=== PATIENT | female | born 1980 | race Caucasian/White ===

== ENCOUNTER 2019-08-29 04:06 | Emergency (ER) | payer BC ==
[2019-08-29] MEDS ORDERED: Albuterol/Ipratropium 3.0-0.5 MG/3 ML Neb Soln NEB ONE (04:22)
--- NOTE | 2019-08-29 04:27 | EDM.PDOC ---
ED HPI GENERAL MEDICAL PROBLEM - General Chief Complaint: Respiratory Problem Stated Complaint: COUGHING Time Seen by Provider: 08/29/19 04:11 - History of Present Illness INITIAL COMMENTS - FREE TEXT/NARRATIVE: HISTORY AND PHYSICAL: History of present illness: The patient is a 39-year-old female with no history of pulmonary issues and no social history of smoking or drug use and presents with 2 days of a cough which is occasional tachycardia and dry and sometimes productive of some phlegm. She is felt intermittently short of breath but has not had a fever vomiting diarrhea or chest pain. She does feel like she has sinus pressure but no great amount of drainage and as a result of the cough she has had a sore throat but the cough has triggered that to occur. She has no abdominal pain and says that she is not as she has had a bilateral tubal ligation. The patient had a history of pneumonia in her early 20s but since that time has not had any seasonal allergies or pulmonary problems. Patient did get her flu shot this year. She is eating and drinking normally. The only medications over-the- counter the patient has used has been DayQuil and NyQuil Review of systems: As per history of present illness and below otherwise all systems reviewed and negative. Past medical history: As per history of present illness and as reviewed below otherwise noncontributory. Surgical history: As per history of present illness and as reviewed below otherwise noncontributory. Social history: No reported history of drug or alcohol abuse. Family history: As per history of present illness and as reviewed below otherwise noncontributory. Physical exam: General: Well-developed well-nourished female who speaks clearly in the ED without nasal quality to voice, breathlessness, hoarse or muffled voice. Vital signs are noted by me HEENT: Atraumatic, normocephalic, pupils reactive, negative for conjunctival pallor or scleral icterus, mucous membranes moist, throat clear, neck supple, nontender, trachea midline. There was no cervical adenopathy or nuchal rigidity and no nasal drainage Lungs: Clear to auscultation with slightly diminished breath sounds in the right middle lobe but no wheezing stridor or work of breathing, breath sounds equal bilaterally, chest nontender. Heart: S1S2, regular rate and rhythm no overt murmurs Abdomen: Soft, nondistended, nontender. NABS Negative for costovertebral tenderness. Pelvis: Deferred Genitourinary: Deferred. Rectal: Deferred. Extremities: Atraumatic, full range of motion. Neurovascular unremarkable. No pedal edema Neuro: Awake, alert, oriented. Cranial nerves II through XII unremarkable. Cerebellum unremarkable. Motor and sensory unremarkable throughout. Exam nonfocal. Diagnostics: Influenza chest x-ray Therapeutics: DuoNeb, spacer and teaching Impression: Acute bronchitis Definitive disposition and diagnosis as appropriate pending reevaluation and review of above. - Related Data Allergies Allergy/AdvReac Type Severity Reaction Status Date / Time No Known Allergies Allergy Verified 08/29/19 04:09 Home Meds: Home Meds Omeprazole 20 mg PO DAILY 08/29/19 [History] Past Medical History Cardiovascular History: Reports: Hypertension Gastrointestinal History: Reports: GERD - Past Surgical History HEENT Surgical History: Reports: Tonsillectomy Female Surgical History: Reports: Section, Tubal Ligation Musculoskeletal Surgical History: Reports: Other (See Below) Other Musculoskeletal Surgeries/Procedures:: ankle sx Social & Family History - Family History Family Medical History: Noncontributory - Tobacco Use Smoking Status *Q: Never Smoker - Recreational Drug Use Recreational Drug Use: No ED ROS GENERAL - Review of Systems Review Of Systems: ROS reveals no pertinent complaints other than HPI. ED EXAM, GENERAL - Physical Exam Exam: See Below (see dictation) Course - Vital Signs Last Recorded V/S: Last Vital Signs Temp 35.9 C 08/29/19 04:10 Pulse 84 08/29/19 04:10 Resp 18 08/29/19 04:10 BP 131/76 08/29/19 04:10 Pulse Ox 97 08/29/19 04:10 - Orders/Labs/Meds Orders: Active Orders 24 hr Category Date Time Status RT Aerosol Therapy [RC] ASDIRECTED Care 08/29/19 04:23 Active Meds: Medications Discontinued Medications Generic Name Dose Route Start Last Admin Trade Name Freq PRN Reason Stop Dose Admin Albuterol/Ipratropium 3 ml 08/29/19 04:22 08/29/19 04:26 Duoneb 3.0-0.5 Mg/3 Ml NEB 08/29/19 04:23 3 ml ONETIME ONE Administration Departure - Departure Time of Disposition: 05:21 Disposition: Home, Self-Care 01 Condition: Good Clinical Impression: Bronchitis - Discharge Information Referrals: PCP,None [Primary Care Provider] - Forms: ED Department Discharge Additional Instructions: The following information is given to patients seen in the emergency department who are being discharged to home. This information is to outline your options for follow-up care. We provide all patients seen in our emergency department with a follow-up referral. The need for follow-up, as well as the timing and circumstances, are variable depending upon the specifics of your emergency department visit. If you don't have a primary care physician on staff, we will provide you with a referral. We always advise you to contact your personal physician following an emergency department visit to inform them of the circumstance of the visit and for follow-up with them and/or the need for any referrals to a consulting specialist. The emergency department will also refer you to a specialist when appropriate. This referral assures that you have the opportunity for followup care with a specialist. All of these measure are taken in an effort to provide you with optimal care, which includes your followup. Under all circumstances we always encourage you to contact your private physician who remains a resource for coordinating your care. When calling for followup care, please make the office aware that this follow-up is from your recent emergency room visit. If for any reason you are refused follow-up, please contact the [facility] emergency department at and ask to speak to the emergency department charge nurse. [facility] Primary care- Internal Medicine and Family [address] [address] Push hydration and use any [id number] cough prep that you choose and take Tylenol or ibuprofen for fever management. Please use the inhaler your been given with spacer as shown as directed and also take the Medrol dose pack as prescribed to you from [employer] [facility] .Please call and schedule a follow-up appointment with your provider or one of ours in the clinic for further care and reevaluation. Return to ER as needed and as discussed - My Orders Last 24 Hours: My Active Orders 08/29/19 04:23 RT Aerosol Therapy [RC] ASDIRECTED - Assessment/Plan Last 24 Hours: My Active Orders 08/29/19 04:23 RT Aerosol Therapy [RC] ASDIRECTED
--- NOTE | 2019-08-29 05:06 | CR ---
INDICATION: Cough COMPARISON: None TECHNIQUE: Frontal and lateral views of the chest FINDINGS: The lungs are clear. There is no pleural effusion or pneumothorax. The cardiomediastinal silhouette is normal. The osseous structures are unremarkable. IMPRESSION: No acute process. Dictated by Melanie Campos MD @ Aug 29 2019 5:05AM Signed by Dr. Melanie Campos @ Aug 29 2019 5:05AM
== END 2019-08-29 05:25 | disposition home or self-care (01) ==
LOC: MW.ED 04:06
DX: J40 Bronchitis, not specified as acute or chronic (principal); I10 Essential (primary) hypertension; K21.9 Gastro-esophageal reflux disease without esophagitis; Z79.899 Other long term (current) drug therapy
CPT/HCPCS: 71046; 71046-26; 87804; 94640; 99283; 99285-25; J7620-GY

== ENCOUNTER 2019-09-04 17:42 | Emergency (ER) | payer BC ==
--- NOTE | 2019-09-04 17:53 | EDM.PDOC ---
ED HPI GENERAL MEDICAL PROBLEM - General Chief Complaint: Lower Extremity Injury/Pain Stated Complaint: INJURED LT KNEE Time Seen by Provider: 09/04/19 17:44 Source of Information: Reports: Patient History Limitations: Reports: No Limitations - History of Present Illness INITIAL COMMENTS - FREE TEXT/NARRATIVE: HISTORY AND PHYSICAL: History of present illness: Patient is a 39-year-old female presents to the ED today with concern of left knee injury that occurred 1 week ago. Patient states she went to go sit on her couch and felt her knee "pop" and since then has been having left knee pain. Patient states the knee began to bruises the next day. Patient states she has been able to walk on the knee but does have pain with doing so. Patient denies any prior knee injury or trauma. Patient denies any other symptoms or concerns.Patient states she does have an appointment with orthopedic provider in 2 weeks. Patient denies fever, chills, chest pain, shortness of breath, or cough. Denies headache, neck stiff ness, change in vision, syncope, or near syncope. Denies nausea, vomiting, abdominal pain, diarrhea, constipation, or dysuria. Has not noted any blood in urine or stool. Patient has been eating and drinking appropriately. Review of systems: As per history of present illness and below otherwise all systems reviewed and negative. Past medical history: As per history of present illness and as reviewed below otherwise noncontributory. Surgical history: As per history of present illness and as reviewed below otherwise noncontributory. Social history: See social history for further information Family history: As per history of present illness and as reviewed below otherwise noncontributory. Physical exam: General: Patient is alert, oriented, and in no acute distress. Patient sitting comfortably on exam table. HEENT: Atraumatic, normocephalic, pupils equal and reactive bilaterally, negative for conjunctival pallor or scleral icterus, mucous membranes moist, TMs normal bilaterally, throat clear, neck supple, nontender, trachea midline. No drooling or trismus noted. No meningeal signs. No hot potato voice noted. Lungs: Clear to auscultation, breath sounds equal bilaterally, chest nontender. Heart: S1S2, regular rate and rhythm without overt murmur Abdomen: Soft, nondistended, nontender. Negative for masses or hepatosplenomegaly. Negative for costovertebral tenderness. Pelvis: Stable nontender. Genitourinary: Deferred. Rectal: Deferred. Skin: Intact, warm, dry. No lesions or rashes noted. Extremities: Negative for cords or calf pain. Neurovascular unremarkable. The left knee is moderately edematous with purple bruising along the entire knee. Patient has full ROM of the left knee but does have pain with ROM. DP/PT intact of LLE with cap refill <2 seconds. Neuro: Awake, alert, oriented. Cranial nerves II through XII unremarkable. Cerebellum unremarkable. Motor and sensory unremarkable throughout. Exam nonfocal. Notes: Discussed the importance for follow-up with an orthopedic provider. Voices understanding and is agreeable to plan of care. Denies any further questions or concerns at this time. Diagnostics: Knee XR Therapeutics: Immobilizer and crutches Prescription: Diclofenac Impression: Left knee injury Plan: 1. Rest, ice, elevate the affected extremity. You can apply ice 15 minutes on, 15 minutes off. Keep immobilizer on until follow up with orthopedics, 2. Tylenol directed for pain management or discomfort. Take medication as prescribed. 3. Follow up with the Orthopedic provider as discussed. Return to the ED as needed and as discussed. Definitive disposition and diagnosis as appropriate pending reevaluation and review of above. L knee Pain Score (Numeric/FACES): 3 - Related Data Allergies Allergy/AdvReac Type Severity Reaction Status Date / Time No Known Allergies Allergy Verified 09/04/19 17:53 Home Meds: Home Meds Omeprazole 20 mg PO DAILY 08/29/19 [History] Past Medical History Cardiovascular History: Reports: Hypertension Gastrointestinal History: Reports: GERD - Past Surgical History HEENT Surgical History: Reports: Tonsillectomy Female Surgical History: Reports: Section, Tubal Ligation Musculoskeletal Surgical History: Reports: Other (See Below) Other Musculoskeletal Surgeries/Procedures:: ankle sx Social & Family History - Family History Family Medical History: Noncontributory Review of Systems - Review of Systems Review Of Systems: Comprehensive ROS is negative, except as noted in HPI. ED EXAM, GENERAL - Physical Exam Exam: See Below (see dictation) Course - Vital Signs Last Recorded V/S: Last Vital Signs Temp 97.8 F 09/04/19 17:53 Pulse 71 09/04/19 17:53 Resp 18 09/04/19 17:53 BP 163/89 H 09/04/19 17:53 Pulse Ox 99 09/04/19 17:53 - Orders/Labs/Meds Orders: Active Orders 24 hr Category Date Time Status DME for Discharge [COMM] Stat Oth 09/04/19 17:51 Ordered Departure - Departure Time of Disposition: 18:26 Disposition: Home, Self-Care 01 Clinical Impression: Knee injury Qualifiers: Encounter type: initial encounter Laterality: left Qualified Code(s): S89.92XA - Unspecified injury of left lower leg, initial encounter - Discharge Information Referrals: PCP,None [Primary Care Provider] - Forms: ED Department Discharge Additional Instructions: The following information is given to patients seen in the emergency department who are being discharged to home. This information is to outline your options for follow-up care. We provide all patients seen in our emergency department with a follow-up referral. The need for follow-up, as well as the timing and circumstances, are variable depending upon the specifics of your emergency department visit. If you don't have a primary care physician on staff, we will provide you with a referral. We always advise you to contact your personal physician following an emergency department visit to inform them of the circumstance of the visit and for follow-up with them and/or the need for any referrals to a consulting specialist. The emergency department will also refer you to a specialist when appropriate. This referral assures that you have the opportunity for follow-up care with a specialist. All of these measure are taken in an effort to provide you with optimal care, which includes your follow-up. Under all circumstances we always encourage you to contact your private physician who remains a resource for coordinating your care. When calling for follow-up care, please make the office aware that this follow-up is from your recent emergency room visit. If for any reason you are refused follow-up, please contact the [facility] Emergency Department at and asked to speak to the emergency department charge nurse. [facility] [address] [place] [id number] [address] [facility] Specialty Care - Orthopedic Clinic Professional Building [address] [facility], [address] [place] [address] Dr Edmond, Orthopedist [facility] [address] [place] [address] Dr Potter - Dr Beckett - Dr Wyatt [facility] [address] [place] [address] [facility] [address] [place] [address] 1. Rest, ice, elevate the affected extremity. You can apply ice 15 minutes on, 15 minutes off. Keep immobilizer on until follow up with orthopedics, 2. Tylenol directed for pain management or discomfort. Take medication as prescribed. 3. Follow up with the Orthopedic provider as discussed. Return to the ED as needed and as discussed. - My Orders Last 24 Hours: My Active Orders 09/04/19 17:51 DME for Discharge [COMM] Stat - Assessment/Plan Last 24 Hours: My Active Orders 09/04/19 17:51 DME for Discharge [COMM] Stat
--- NOTE | 2019-09-04 18:21 | CR ---
Indication: Twisted 1 week ago. Swelling and bruising. Technique: Three views of the left knee were obtained. Comparison: None Findings: A questionable fracture of the medial aspect of the patella is identified. This is only seen on the sunrise view. A small joint effusion is identified. The joint spaces are otherwise well-maintained. Impression: Cannot exclude an avulsion of the medial aspect of the patella. Consideration could be given to a CT scan for further evaluation. Dictated by Carrie Renae MD @ Sep 04 2019 6:19PM Signed by Dr. Carrie Renae @ Sep 04 2019 6:20PM
== END 2019-09-04 18:38 | disposition home or self-care (01) ==
LOC: MW.ED 17:42
DX: S80.02XA Contusion of left knee, initial encounter (principal); I10 Essential (primary) hypertension; K21.9 Gastro-esophageal reflux disease without esophagitis; Z79.899 Other long term (current) drug therapy; X50.1XXA Overexertion from prolonged static or awkward postures, initial encounter
CPT/HCPCS: 73562-26-LT; 73562-LT; 99283; 99283-25

== ENCOUNTER 2020-01-31 08:11 | Emergency (ER) | payer BC ==
[2020-01-31] MEDS ORDERED: Adenosine 6 MG/2 ML SDV IVPUSH ONE (08:37)
[2020-01-31] MEDS ORDERED: Sodium Chloride 0.9% 1,000 ML IV ONE (08:43)
[2020-01-31 09:03] LABS: POTASSIUM,K 3.4 mmol/L (3.5-5.1)
[2020-01-31] MEDS ORDERED: Potassium Chloride 20 MEQ Tab.ER PO ONE (09:20)
--- NOTE | 2020-01-31 09:26 | EDM.PDOC ---
ED HPI GENERAL MEDICAL PROBLEM - General Chief Complaint: Cardiovascular Problem Stated Complaint: HIGH HEART RATE Time Seen by Provider: 01/31/20 08:15 - History of Present Illness INITIAL COMMENTS - FREE TEXT/NARRATIVE: HPI 39-year-old obese female with history of paroxysmal SVT presents with recurrent tachycardia/palpitations that she noticed this morning upon awakening, afterwards the patient drank a caffeinated beverage and present to the ED for chemical cardioversion. 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 Notes normal sleep, no EtOH use. No further stimulant use. Denies a history of DVT, PE, exogenous estrogen use, or shortness of breath. Triage note: Pt states hx of tachycardia. Pt states the tachycardia woke her up this morning. M/S/F/SocHx notable for: please see HPI; remainder reviewed with patient and in chart. ROS: Negative constitutional, eye, cardiovascular, pulmonary, GI, , MSK, skin , neurologic, psychiatric, endocrine unless noted in the HPI. Exam HR 174, RR 18, BP 118/86, T 35.4C, SaO2 9 & room air. Gen: Pleasant, non-toxic appearing, resting comfortably. HEENT: NC, AT, PEERL, EOMI. Resp: Clear to auscultation bilaterally, normal work of breathing, no accessory muscle usage. Card: Regular rate and rhythm with no murmurs, rubs, or gallops, extremities warm and well perfused. GI: Non-tender to palpation throughout all quadrants, no focal tenderness at McBurney's point, negative Aragon's sign, non-distended, no rebound or guarding. : No suprapubic tenderness to palpation. MSK: No visible deformities, strength and tone without visually appreciable deficit. Skin: Normal color with no visible lesions. Neuro: alert and oriented 3, no facial asymmetry, vision and hearing WNL. Psych: Mood and affect appropriate. Labs / Imaging: EKG (8:18 AM) SVT at 171 bpm, no ST segment elevations or depressions. WBC 7.8, HB 12.9, Na 141, K 3.4, MG 2.0, TSH 2.62, free T4 1.20, hCG negative. EKG (8:56 AM) SR 112 bpm, PVCs present, no ST segment elevations or depressions. MDM Previous chart, nursing note, labs, imaging, and vitals reviewed. A: 39-year-old obese female with history of paroxysmal SVT presents with recurrent tachycardia/palpitations that she noticed this morning upon awakening , afterwards the patient drank a caffeinated beverage and present to the ED for chemical cardioversion. DDx: atrial fibrillation, SVT, sinus tachycardia, dehydration, electrolyte abnormalities, stimulant use. Evaluation: patient in SVT, vagal maneuver is unsuccessful, converted with adenosine, mild hypokalemia noted, PO supplementation given the ED, patient instructed to improve dietary intake. Patient with cardiology follow-up in the near future. TSH WNL. No anemia. Patient recommended to decrease stimulant use. No risk features with respect to PE identified, no further evaluation presently indicated. ED Course: 1. attempted modified vagal maneuver without termination of SVT. 1 L NS ordered. 2. After verbal consent was obtained, chemical cardioversion with adenosine performed as documented below. Impression: SVT (please reference below for remainder of encounter information) Chemical Cardioversion Indication: supraventricular tachycardia. Consent: verbal. Risks and benefits including arrhythmias, emotional distress, hypotension, GA, and allergic reaction were discussed with the patient. The patient understood and agreed to proceed with the procedure. The patient was placed on supplemental oxygen and continuous cardiac and pulse oximetry monitoring. 6 mg Adenosine were given by rapid IV push, the patient had conversion to a normal sinus rhythm]. A continuous 12 lead electrocardiogram was obtained]. There were no complications and the patient tolerated the procedure well. 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: Neurological History: Reports: None Psychiatric History: Reports: Anxiety Endocrine/Metabolic History: Reports: None Hematologic History: Reports: None Immunologic History: Reports: None Oncologic (Cancer) History: Reports: None Dermatologic History: Reports: None - Infectious Disease History Infectious Disease History: Reports: Chicken Pox - Past Surgical History Head Surgeries/Procedures: Reports: None HEENT Surgical History: Reports: Tonsillectomy Female Surgical History: Reports: Section, Tubal Ligation Musculoskeletal Surgical History: Reports: Other (See Below) Other Musculoskeletal Surgeries/Procedures:: L ankle fusion Social & Family History - Family History Family Medical History: Noncontributory - Tobacco Use Smoking Status *Q: Current Every Day Smoker Years of Tobacco use: 20 Packs/Tins Daily: 0.4 - Recreational Drug Use Recreational Drug Use: No ED ROS GENERAL - Review of Systems Review Of Systems: See Below ED EXAM, GENERAL - Physical Exam Exam: See Below Course - Vital Signs Last Recorded V/S: Last Vital Signs Temp 36.1 C 01/31/20 09:01 Pulse 81 01/31/20 09:16 Resp 18 01/31/20 09:16 BP 116/72 01/31/20 09:16 Pulse Ox 100 01/31/20 09:16 - Orders/Labs/Meds Orders: Active Orders 24 hr Category Date Time Status Sodium Chloride 0.9% [Normal Saline] 1,000 ml Med 01/31/20 08:43 Active IV .Bolus Medication Orders Sodium Chloride (Normal Saline) 1,000 mls @ 1,000 mls/hr IV .Bolus ONE Stop: 01/31/20 09:42 Last Admin: 01/31/20 08:45 Dose: 1,000 mls/hr Labs: Laboratory Tests 01/31/20 01/31/20 01/31/20 Range/Units 08:25 08:25 08:25 WBC 7.97 (4.0-11.0) K/uL RBC 4.59 (4.30-5.90) M/uL Hgb 12.9 (12.0-16.0) g/dL Hct 41.7 (36.0-46.0) % MCV 90.8 (80.0-98.0) fL MCH 28.1 (27.0-32.0) pg MCHC 30.9 L (31.0-37.0) g/dL RDW Std Deviation 52.9 (28.0-62.0) fl RDW Coeff of Tyrone 16 H (11.0-15.0) % Plt Count 363 (150-400) K/uL MPV 10.70 (7.40-12.00) fL Neut % (Auto) 64.1 (48.0-80.0) % Lymph % (Auto) 20.8 (16.0-40.0) % Surry % (Auto) 13.2 (0.0-15.0) % Eos % (Auto) 1.4 (0.0-7.0) % Baso % (Auto) 0.5 (0.0-1.5) % Neut # (Auto) 5.1 (1.4-5.7) K/uL Lymph # (Auto) 1.7 (0.6-2.4) K/uL Surry # (Auto) 1.1 H (0.0-0.8) K/uL Eos # (Auto) 0.1 (0.0-0.7) K/uL Baso # (Auto) 0.0 (0.0-0.1) K/uL Nucleated RBC % 0.0 /100WBC Nucleated RBCs # 0 K/uL Sodium 141 (136-145) mmol/L Potassium 3.4 L (3.5-5.1) mmol/L Chloride 105 (98-107) mmol/L Carbon Dioxide 29.0 (21.0-32.0) mmol/L BUN 18 (7.0-18.0) mg/dL Creatinine 1.5 H (0.6-1.0) mg/dL Est Cr Clr Drug Dosing 48.97 mL/min Estimated GFR (MDRD) 38.7 ml/min Glucose 136 H (74-106) mg/dL Calcium 8.7 (8.5-10.1) mg/dL Magnesium 2.0 (1.8-2.4) mg/dL Free T4 1.20 (0.76-1.46) ng/dL TSH 3rd Generation 2.62 (0.36-3.74) uIU/mL HCG, Qual NEGATIVE (NEG) Meds: Medications Generic Name Dose Route Start Last Admin Trade Name Freq PRN Reason Stop Dose Admin Sodium Chloride 1,000 mls @ 1,000 mls/hr 01/31/20 08:43 01/31/20 08:45 Normal Saline IV 01/31/20 09:42 1,000 mls/hr .Bolus ONE Administration Discontinued Medications Generic Name Dose Route Start Last Admin Trade Name Freq PRN Reason Stop Dose Admin Adenosine 6 mg 01/31/20 08:37 01/31/20 08:55 Adenocard IVPUSH 01/31/20 08:38 6 mg NOW ONE Administration Potassium Chloride 40 meq 01/31/20 09:20 Klor-Con M20 PO 01/31/20 09:21 ONETIME ONE Departure - Departure Time of Disposition: 09:26 Disposition: Home, Self-Care 01 Clinical Impression: SVT (supraventricular tachycardia) Referrals: PCP,None [Primary Care Provider] - Additional Instructions: You were in seen in the [facility] Emergency Department for evaluation of a fast heart rate, you were found to be in a supraventricular tachycardia and were given adenosine to restore your normal rhythm. Please follow-up as previously scheduled with cardiology. You are also noted to have a mildly low potassium, your given potassium supplementation in the emergency department and should improve your dietary intake of potassium rich foods (bananas, avocados, leafy greens, potatoes, legumes, dates, etc.). Please read and follow all of the instructions below. Please follow up with your primary care physician within 48 hours. When calling for follow-up care, please make the office aware that this follow-up is from your recent emergency room visit. If for any reason you are refused follow-up, please contact the [facility] Emergency Department at and asked to speak to the emergency department charge nurse. Your care today was limited to identifying and treating emergent medical problems only. Many people have subtle differences in their test results that require follow up with their outpatient physician(s) to correctly determine if this represents a normal variation or concerning abnormality with respect to your specific health. The care given to you today was limited to identifying and treating emergent medical problems - you need to request a copy of all of your medical records from today's visit and follow up with your outpatient physician(s) to review both today's visit and your overall health. If you have any new symptoms or if you are at all concerned about your health please return immediately to the emergency department. Prescriptions: If you are uninsured or have financial difficulties with filling your prescription(s), you may consider using a free pharmacy discount service such as [employer] ([employer]) or [employer] ([employer]). These services allow you to search for a medication on your phone (or computer) and obtain a coupon that usually has a significant discount from the list garduno at a pharmacy. Your physician as well as [facility] does not have a financial relationship with either of these services. You may also wish to speak with your physician to determine if lower cost prescriptions are possible. Obtaining primary care: 1. [facility] provides pediatrics (children), family medicine (children, adults, and some obstetrical care), and internal medicine (adults). Further specialty care is also available. Same day appointments are available. They may be contacted at [phone] and are open Tuesday through Tuesday 8 AM to 5 PM. The [facility] are located at [facility], [address] [place] [address]. 2. [facility] offers family medicine, internal medicine, [facility], and further specialty care. [facility] may be contacted at [phone]. [facility] is located at [address] [place], [address]. 3. If you have health insurance, please also contact your insurer for a list of accepting providers under your policy, you may contact these providers for further health care. Occupational health: Work related injuries may consider following up with [facility], . Occupational health services are located at [address] [place] [address] and are open Tuesday through Tuesday from 7: 30 am to 5:00 pm. Obstetrical and Gynecological Care: [facility], , Tuesday through Tuesday 8 AM to 5 PM. [address] [place] [address]. Eyecare: If you have an eye injury you should follow up with your profile grinder technician or with [facility], at [phone] or [phone] , they are located at [address] [place] [address]. Dental Care Clay Christianson DDS. [address] [facility].[place], [place]. Ph. [phone] Gonzalo Christianson DDS MS. [address] [facility] [address], [place], [place]. Ph. Heath Laird DDS. 10 10/[address] [place] [address]. Ph. [phone] Chico Beckett DDS. [address] [facility] 4 [place], [place]. Ph. [phone] Valeriy Welch DDS PC. [address] [facility] [address] [place], [place]. Ph. Kyle Maldonado DDS. [address] [facility]. Ph. [phone] [facility]. [address] [place], [place]. Ph. [phone] [facility]. [address] [place] [address], [place], [place]. Ph. [phone] [facility] [address] [place] [address]. Ph. [phone] [facility]. [address] [place] [address] [address] [place], [place]. Ph. [facility]. [address] [place], [place]. Ph. [phone] Supraventricular Tachycardia, Adult Supraventricular tachycardia (SVT) is a type of abnormal heart rhythm. It causes the heart to beat very quickly and then return to [place] [address] [place] per minute. During an episode of SVT, your heart rate may be higher than 150 beats per minute. Episodes of SVT can be frightening, but they are usually not dangerous. However, if episodes happens often or last for long periods of time, they may lead to heart failure. What are the causes? Usually, a normal heartbeat starts when an area called the sinoatrial node releases an electrical signal. In SVT, other areas of the heart send out electrical signals that interfere with the signal from the sinoatrial node. It is not known why some people get SVT and others do not. What increases the risk? This condition is more likely to develop in: * People who are 12?30 years old. * Women. Factors that may increase your chances of an attack include: * Stress. * Tiredness. * Smoking. * Stimulant drugs, such as cocaine and methamphetamine. * Alcohol. * Caffeine. * . * Anxiety. What are the signs or symptoms? Symptoms of this condition include: * A pounding heart. * A feeling that the heart is skipping beats (palpitations). * Weakness. * Shortness of breath. * Tightness or pain in your chest. * Light-headedness. * Anxiety. * Dizziness. * Sweating. * Nausea. * Fainting. * Fatigue or tiredness. * A mild episode may not cause symptoms. How is this diagnosed? This condition may be diagnosed based on: * Your symptoms. * A physical exam. If you are have an episode of SVT during the exam, the health care provider may be able to diagnose SVT by listening to your heart and feeling your pulse. * Tests. These may include: * An electrocardiogram (ECG). This test is done to check for problems with electrical activity in the heart. * A Holter monitor or event monitor test. This test involves wearing a portable device that monitors your heart rate over time. * An echocardiogram. This test involves taking an image of your heart using sound waves. It is done to rule out other causes of a fast heart rate. * Blood tests. How is this treated? This condition may be treated with: * Vagal nerve stimulation. The treatment involves stimulating your vagus nerve, which slows down the heart. It is often the first and only treatment that is needed for this condition. It is a good idea to try the several ways of doing vagal stimulation to find which one works best for you. Ways to do this treatment include: * Holding your breath and pushing, as though you are having a bowel movement. * Massaging an area on one side of your neck, below your jaw. Do nottry this yourself. Only a health care provider should do this. If done the wrong way , it can lead to a stroke. * Bending forward with your head between your legs. * Coughing while bending forward with your head between your legs. * Closing your eyes and massaging your eyeballs. A health care provider should guide you through this method before you try it on your own. * Medicines that prevent attacks. * Medicine to stop an attack. The medicine is given through an IV tube at the hospital. * A small electric shock (cardioversion) that stops an attack. Before you get the shock, you will get medicine to make you fall asleep. * Radiofrequency ablation. In this procedure, a small, thin tube (catheter) is used to send radiofrequency energy to the area of tissue that is causing the rapid heartbeats. The energy kills the cells and helps your heart keep a normal rhythm. You may have this treatment if you have symptoms of SVT often. * If you do not have symptoms, you may not need treatment. Follow these instructions at home: Stress * Avoid stressful situations when possible. * Find healthy ways of managing stress that work for you. Some healthy ways to manage stress include: * Taking part in relaxing activities, such as yoga, meditation, or being out in nature. * Listening to relaxing music. * Practicing relaxation techniques, such as deep breathing. * Leading a healthy lifestyle. This involves getting plenty of sleep, exercising, and eating a balanced diet. * Attending counseling or talk therapy with a mental health professional. Sleep * Try to get at least 7 hours of sleep each night. Tobacco and nicotine * Do notuse any products that contain nicotine or tobacco, such as cigarettes quan-cigarettes. If you need help quitting, ask your health careprovider. Alcohol * If alcohol triggers episodes of SVT, do notdrink alcohol. * If alcohol does not seem to trigger episodes, limit alcohol intake to no more than 1 drink a day for non women and 2 drinks a day for men. One drink equals 12 oz of beer, 5 oz of wine, or 1 oz of hard liquor. Caffeine * If caffeine triggers episodes of SVT, do noteat, drink, or use anything with caffeine in it. * If caffeine does not seem to trigger episodes, consume caffeine in moderation. Stimulant drugs * Do notuse stimulant drugs. If you need help quitting, talk with your health careprovider. General instructions * Maintain a healthy weight. * Exercise regularly. Ask your health care provider to suggest some good activities for you. Aim for one or a combination of the following: * 150 minutes per week of moderate exercise, such as walking or yoga. * 75 minutes per week of vigorous exercise, such as running or swimming. * Perform vagus nerve stimulation as directed by your health care provider. * Take xnai-[id number]-euvdjdt and prescription medicines only as told by your health care provider. Contact a health care provider if: * You have episodes of SVT more often than before. * Episodes of SVT last longer than before. * Vagus nerve stimulation is no longer helping. * You have new symptoms. Get help right away if: * You have chest pain. * Your symptoms get worse. * You have trouble breathing. * You have an episode of SVT that lasts longer than 20 minutes. * You faint. These symptoms may represent a serious problem that is an emergency. Do not wait to see if the symptoms will go away. Get medical help right away. Call your local emergency services (911 in the [place] Do not drive yourself to the hospital. Sepsis Event Note - Evaluation Sepsis Screening Result: No Definite Risk - Focused Exam Vital Signs: Vital Signs Temp Pulse Resp BP Pulse Ox 01/31/20 09:16 81 18 116/72 100 01/31/20 09:01 36.1 C 84 16 132/83 100 01/31/20 08:16 35.4 C L 174 H 18 118/86 99 Date Exam was Performed: 01/31/20 Time Exam was Performed: 09:25 - My Orders Last 24 Hours: My Active Orders 01/31/20 08:43 Sodium Chloride 0.9% [Normal Saline] 1,000 ml IV .Bolus - Assessment/Plan Last 24 Hours: My Active Orders 01/31/20 08:43 Sodium Chloride 0.9% [Normal Saline] 1,000 ml IV .Bolus
== END 2020-01-31 09:46 | disposition home or self-care (01) ==
LOC: MW.ED 08:11
DX: I47.1 Supraventricular tachycardia (principal); I10 Essential (primary) hypertension; K21.9 Gastro-esophageal reflux disease without esophagitis; F17.210 Nicotine dependence, cigarettes, uncomplicated; Z79.899 Other long term (current) drug therapy
CPT/HCPCS: 80048; 83735; 84439; 84443; 84703; 85025; 93005; 96361; 96374; 99285; A9270; J0153; J7030; 99284

== ENCOUNTER 2020-02-27 21:50 | Emergency (ER) | payer BC ==
--- NOTE | 2020-02-27 22:21 | EDM.PDOC ---
ED HPI GENERAL MEDICAL PROBLEM - General Stated Complaint: EMS Time Seen by Provider: 02/27/20 22:16 Source of Information: Reports: EMS - History of Present Illness INITIAL COMMENTS - FREE TEXT/NARRATIVE: It is a witnessed arrest by her at home. Upon sales engineer arrival patient was apneic and asystolic. She was intubated with a 6.0 ET tube and had chest compressions for at least 5 minutes. Patient had an IO started. She was given 2 doses of Narcan after which he had return of vital signs. Patient is not responsive still. No sign of any head trauma. Further reports from family states that she was snorting heroin have been using oxycodone. I do have the urine tox back at this point was positive for methamphetamine. Her chest x-ray shows a right upper lobe infiltrate and a small effusion on the left. Medical history is positive for paroxysmal SVT. Patient does have radial and carotid pulses. Blood pressure has ranged from high 80-102 systolically. Patient's EKG is normal sinus with a rate of [address] or T wave changes. Patient has coarse breath sounds bilaterally. Patient has 2 lines in an 18-gauge and a 22. I have discussed the patient with Dr. Lazo and Dr. Garcia who is the sports medicine coordinator at [facility]. We are starting the patient on Zofran 4.5 g IV and transferring her to their ICU. [facility] team is present. Satting 92% currently. Onset: Today, Sudden Treatments LICENSED PROSTHETIST: Reports: Other (see below) (Patient intubated in the field with a 6.0 ET tube. IO started and patient given 2 dose of Narcan with spontaneous return of circulation.) - Related Data Allergies Allergy/AdvReac Type Severity Reaction Status Date / Time No Known Allergies Allergy Verified 02/27/20 22:34 ED ROS GENERAL - Review of Systems Review Of Systems: Unable To Obtain Reason Not Obtained: Intubated patient who is unresponsive ED EXAM, GENERAL - Physical Exam Exam: See Below Exam Limited By: Other (Intubated patient) Head: Atraumatic, Normocephalic Neck: Normal Inspection Respiratory/Chest: Rhonchi, Other (Intubated and being bagged.) GI/Abdominal: Soft, No Distention. No: Guarding, Rigid, Rebound Back Exam: Normal Inspection Extremities: Normal Inspection, No Pedal Edema Neurological: Unresponsive Skin Exam: Warm, Dry. No: Cool, Cyanosis, Mottled, Pallor EKG INTERPRETATION Rhythm: NSR P-Wave: Present QRS: Normal ST-T: Normal Course - Vital Signs Text/Narrative:: See HPI. Patient received an additional dose of Narcan while in the department. Her blood pressure was 102/62. Heart rate of 76. Pulse ox of 92% . Patient has been suctioned numerous times and I am told 1 pieces of spaghetti suctioned out. Patient has right upper lobe infiltrate in the left sided effusion per my reading of her chest x-ray. I did have them withdraw the ET tube 1 cm upon arrival because I heard decreased breath sounds on the left side. After that was done breath sounds were equal full course with rhonchi bilaterally. Patient's lab work shows a very elevated lactate at 4.7 and a positive urine tox for methamphetamine. I have been told that patient was snorting heroin while using oxycodone. I have given her a second dose of Narcan. It is still unresponsive. She has been accepted at [facility] to Dr. Lazo. He requested that she get both a Tylenol and salicylate level done here before transfer secondary to the machine being broken. Both of these labs are normal. - Orders/Labs/Meds Orders: Active Orders 24 hr Category Date Time Status EKG 12 Lead [EKG Documentation Completion] [RC] STAT Care 02/27/20 22:09 Active CXR [Chest 1V Frontal] [CR] Stat Exams 02/27/20 22:25 Ordered ABG [BLOOD GAS ARTERIAL] [BG] Stat Lab 02/27/20 22:09 Ordered Labs: Laboratory Tests 02/27/20 02/27/20 02/27/20 Range/Units 21:51 21:51 21:51 WBC 6.88 (4.0-11.0) K/uL RBC 4.47 (4.30-5.90) M/uL Hgb 12.6 (12.0-16.0) g/dL Hct 40.1 (36.0-46.0) % MCV 89.7 (80.0-98.0) fL MCH 28.2 (27.0-32.0) pg MCHC 31.4 (31.0-37.0) g/dL RDW Std Deviation 53.5 (28.0-62.0) fl RDW Coeff of [place] 16 H (11.0-15.0) % Plt Count 273 (150-400) K/uL MPV 10.70 (7.40-12.00) fL Add Manual Diff YES Neutrophils % (Manual) 61 (48.0-80.0) % Band Neutrophils % 3 % Lymphocytes % (Manual) 30 (16.0-40.0) % Monocytes % (Manual) 3 (0.0-15.0) % Eosinophils % (Manual) 1 (0.0-7.0) % Basophils % (Manual) 2 H (0.0-1.5) % Nucleated RBC % 0.2 /100WBC Absolute Seg Neuts 4.2 (1.4-5.7) Band Neutrophils # 0.2 Lymphocytes # (Manual) 2.1 (0.6-2.4) Monocytes # (Manual) 0.2 (0.0-0.8) Eosinophils # (Manual) 0.1 (0.0-0.7) Basophils # (Manual) 0.1 (0.0-0.1) Nucleated RBCs # 0 K/uL Lactate 4.7 H* (0.20-2.00) mmol/L Sodium 137 (136-145) mmol/L Potassium 3.1 L (3.5-5.1) mmol/L Chloride 99 (98-107) mmol/L Carbon Dioxide 18.7 L (21.0-32.0) mmol/L BUN 15 (7.0-18.0) mg/dL Creatinine 1.5 H (0.6-1.0) mg/dL Est Cr Clr Drug Dosing TNP Estimated GFR (MDRD) 38.7 ml/min Glucose 355 H (74-106) mg/dL Calcium 7.8 L (8.5-10.1) mg/dL Total Bilirubin 0.4 (0.2-1.0) mg/dL AST 74 H (15-37) IU/L ALT 34 (14-63) IU/L Alkaline Phosphatase 121 H (46-116) U/L Total Protein 6.6 (6.4-8.2) g/dL Albumin 3.3 L (3.4-5.0) g/dL Globulin 3.3 (2.6-4.0) g/dL Albumin/Globulin Ratio 1.0 (0.9-1.6) Urine HCG, Qual (NEGATIVE) Salicylates (0-20) mg/dL Urine Opiates Screen (NEGATIVE) Ur Oxycodone Screen (NEGATIVE) Urine Methadone Screen (NEGATIVE) Acetaminophen ug/mL Ur Barbiturates Screen (NEGATIVE) Ur Phencyclidine Scrn (NEGATIVE) Ur Amphetamine Screen (NEGATIVE) U Methamphetamines Scrn (NEGATIVE) U Benzodiazepines Scrn (NEGATIVE) U Cocaine Metab Screen (NEGATIVE) U Marijuana (THC) Screen (NEGATIVE) Ethyl Alcohol 63 mg/dL 02/27/20 02/27/20 02/27/20 Range/Units 21:51 22:00 22:00 WBC (4.0-11.0) K/uL RBC (4.30-5.90) M/uL Hgb (12.0-16.0) g/dL Hct (36.0-46.0) % MCV (80.0-98.0) fL MCH (27.0-32.0) pg MCHC (31.0-37.0) g/dL RDW Std Deviation (28.0-62.0) fl RDW Coeff of [place] (11.0-15.0) % Plt Count (150-400) K/uL MPV (7.40-12.00) fL Add Manual Diff Neutrophils % (Manual) (48.0-80.0) % Band Neutrophils % % Lymphocytes % (Manual) (16.0-40.0) % Monocytes % (Manual) (0.0-15.0) % Eosinophils % (Manual) (0.0-7.0) % Basophils % (Manual) (0.0-1.5) % Nucleated RBC % /100WBC Absolute Seg Neuts (1.4-5.7) Band Neutrophils # Lymphocytes # (Manual) (0.6-2.4) Monocytes # (Manual) (0.0-0.8) Eosinophils # (Manual) (0.0-0.7) Basophils # (Manual) (0.0-0.1) Nucleated RBCs # K/uL Lactate (0.20-2.00) mmol/L Sodium (136-145) mmol/L Potassium (3.5-5.1) mmol/L Chloride (98-107) mmol/L Carbon Dioxide (21.0-32.0) mmol/L BUN (7.0-18.0) mg/dL Creatinine (0.6-1.0) mg/dL Est Cr Clr Drug Dosing Estimated GFR (MDRD) ml/min Glucose (74-106) mg/dL Calcium (8.5-10.1) mg/dL Total Bilirubin (0.2-1.0) mg/dL AST (15-37) IU/L ALT (14-63) IU/L Alkaline Phosphatase (46-116) U/L Total Protein (6.4-8.2) g/dL Albumin (3.4-5.0) g/dL Globulin (2.6-4.0) g/dL Albumin/Globulin Ratio (0.9-1.6) Urine HCG, Qual NEGATIVE (NEGATIVE) Salicylates 3.1 (0-20) mg/dL Urine Opiates Screen NEGATIVE (NEGATIVE) Ur Oxycodone Screen NEGATIVE (NEGATIVE) Urine Methadone Screen NEGATIVE (NEGATIVE) Acetaminophen <2.0 ug/mL Ur Barbiturates Screen NEGATIVE (NEGATIVE) Ur Phencyclidine Scrn NEGATIVE (NEGATIVE) Ur Amphetamine Screen POSITIVE (NEGATIVE) U Methamphetamines Scrn POSITIVE (NEGATIVE) U Benzodiazepines Scrn NEGATIVE (NEGATIVE) U Cocaine Metab Screen NEGATIVE (NEGATIVE) U Marijuana (THC) Screen NEGATIVE (NEGATIVE) Ethyl Alcohol mg/dL Meds: Medications Discontinued Medications Generic Name Dose Route Start Last Admin Trade Name Freq PRN Reason Stop Dose Admin Piperacillin Sod/Tazobactam 100 mls @ 100 mls/hr 02/27/20 22:22 Sod 4.5 gm/ Sodium Chloride IV 02/27/20 23:21 ONETIME ONE Naloxone HCl 1 mg 02/27/20 22:51 Narcan IVPUSH 02/27/20 22:52 ONETIME ONE Naloxone HCl 1 mg 02/27/20 22:51 Narcan IVPUSH 02/27/20 22:52 ONETIME ONE Departure - Departure Time of Disposition: 23:07 Disposition: DC/Tfer to Acute Hospital 02 Condition: Fair Clinical Impression: Cardiac arrest, Respiratory arrest, Overdose of drug/medicinal substance - Discharge Information Referrals: PCP,None [Primary Care Provider] - Critical Care Note - Critical Care Note Total Time (mins): 60 Sepsis Event Note - Focused Exam Date Exam was Performed: 02/28/20 Time Exam was Performed: 00:10 - My Orders Last 24 Hours: My Active Orders 02/27/20 22:09 EKG 12 Lead [EKG Documentation Completion] [RC] STAT ABG [BLOOD GAS ARTERIAL] [BG] Stat 02/27/20 22:25 CXR [Chest 1V Frontal] [CR] Stat - Assessment/Plan Last 24 Hours: My Active Orders 02/27/20 22:09 EKG 12 Lead [EKG Documentation Completion] [RC] STAT ABG [BLOOD GAS ARTERIAL] [BG] Stat 02/27/20 22:25 CXR [Chest 1V Frontal] [CR] Stat
[2020-02-27] MEDS ORDERED: Piperacillin/Tazobactam 4.5 GM in Sodium Chloride 0.9% 100 ML IV ONE (22:22)
--- NOTE | 2020-02-27 22:35 | CR ---
Chest: Portable view of the chest was obtained. Comparison: No previous chest imaging is available. Heart size and mediastinum are normal. Pulmonary vessels are minimally congested. Lungs otherwise are clear. Endotracheal tube is seen with tip lying at the level of the clavicles. Bony structures are grossly intact. Impression: 1. Cardiomegaly and minimal pulmonary vascular congestion. 2. Tip of endotracheal tube at the level of the clavicles. Diagnostic code #3 This report was dictated in MDT
[2020-02-27 22:36] LABS: BLOOD UREA NITROGEN,BUN 15 mg/dL (7.0-18.0); CARBON DIOXIDE,CO2 18.7 mmol/L (21.0-32.0); CHLORIDE,CL 99 mmol/L (98-107); GLUCOSE RANDOM 355 mg/dL (74-106); POTASSIUM,K 3.1 mmol/L (3.5-5.1); SODIUM,NA 137 mmol/L (136-145)
[2020-02-27] MEDS ORDERED: Naloxone 0.4 MG/ML Syringe IVPUSH ONE ×2 (22:51)
[2020-02-27 22:53] LABS: ACETAMINOPHEN <2.0 ug/mL
== END 2020-02-27 22:37 ==
LOC: MERGE 21:50 → MW.ED 21:50
DX: I46.9 Cardiac arrest, cause unspecified (principal); T40.1X1A Poisoning by heroin, accidental (unintentional), initial encounter
CPT/HCPCS: 31500; 36415; 43752; 71045; 80053; 80305; 80307; 81025; 83605; 85025; 93005; 99285; A9270; J2543; J7050; 99291

== ENCOUNTER 2020-03-08 12:53 | Emergency (ER) | payer BC ==
--- NOTE | 2020-03-08 13:32 | EDM.PDOC ---
ED HPI GENERAL MEDICAL PROBLEM - General Chief Complaint: General Stated Complaint: BLEEDING Time Seen by Provider: 03/08/20 13:14 Source of Information: Reports: Patient History Limitations: Reports: No Limitations - History of Present Illness INITIAL COMMENTS - FREE TEXT/NARRATIVE: This 39 year old female is admitted to the ED with a chief complaint of blood in her stool that started this morning. She states that she was here a few weeks ago after going into cardiac arrest due to what sound like a laced capsule of what was suppose to be a pain pill. She complains of soreness in her left chest wall. She denies any other complaints at this time. Left Chest Pain Score (Numeric/FACES): 8 - Related Data Allergies Allergy/AdvReac Type Severity Reaction Status Date / Time No Known Allergies Allergy Verified 01/31/20 08:18 Home Meds: Home Meds Omeprazole 20 mg PO DAILY 08/29/19 [History] hydroCHLOROthiazide [Hydrochlorothiazide] 12.5 mg PO DAILY 01/31/20 [History] Hydrocodone/Acetaminophen [[place] 5-325 Tablet] 1 each PO Q8H PRN 4 Days #12 tablet 03/08/20 [Rx] Pantoprazole Sodium [Protonix] 40 mg PO DAILY 60 Days #60 tablet. 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: Neurological History: Reports: None Psychiatric History: Reports: Anxiety Endocrine/Metabolic History: Reports: None Hematologic History: Reports: None Immunologic History: Reports: None Oncologic (Cancer) History: Reports: None Dermatologic History: Reports: None - Infectious Disease History Infectious Disease History: Reports: Chicken Pox - Past Surgical History Head Surgeries/Procedures: Reports: None HEENT Surgical History: Reports: Tonsillectomy Female Surgical History: Reports: Section, Tubal Ligation Musculoskeletal Surgical History: Reports: Other (See Below) Other Musculoskeletal Surgeries/Procedures:: L ankle fusion Social & Family History - Family History Family Medical History: Noncontributory ED ROS GENERAL - Review of Systems Review Of Systems: Comprehensive ROS is negative, except as noted in HPI. ED EXAM, GENERAL - Physical Exam Exam: See Below Exam Limited By: No Limitations General Appearance: Alert, WD/WN, No Apparent Distress Eye Exam: Bilateral Eye: EOMI, Normal Inspection, PERRL Ears: Normal External Exam, Normal Canal, Hearing Grossly Normal, Normal TMs Ear Exam: Bilateral Ear: Auricle Normal, Canal Normal, TM normal Nose: Normal Inspection, Normal Mucosa Throat/Mouth: Normal Inspection, Normal Oropharynx, Normal Voice, No Airway Compromise Head: Atraumatic, Normocephalic Neck: Normal Inspection, Full Range of Motion. No: Carotid Bruit Respiratory/Chest: No Respiratory Distress, Lungs Clear, Normal Breath Sounds, Other (mild tenderness noted over both lateral mid ribs that is most likely due to CPR that was done two plus weeks ago.) Peripheral Pulses: 3+: Radial (L), Radial (R), Dorsalis Pedis (L), Dorsalis Pedis (R), 4+: Carotid (L), Carotid (R) GI/Abdominal: Normal Bowel Sounds, Soft, Non-Tender, No Organomegaly, No Abnormal Bruit, No Mass (Female) Exam: Deferred Rectal (Female) Exam: Normal Exam, Normal Rectal Tone, Heme + Stool. No: Hemorrhoids Back Exam: Normal Inspection, Full Range of Motion Extremities: Normal Inspection, Normal Range of Motion, Normal Capillary Refill Neurological: Alert, Oriented (times 4), CN II-XII Intact, Normal Cognition, Normal Gait, Normal Reflexes, No Motor/Sensory Deficits Psychiatric: Normal Affect, Normal Mood Skin Exam: Warm, Dry, Intact, Normal Color, No Rash Lymphatic: No Adenopathy Course - Vital Signs Text/Narrative:: The patient states that her chest feels much better since her Narco pill. I discussed with her all of her diagnostic test. She will be discharged. She agrees with the discharge plan. Last Recorded V/S: Last Vital Signs Temp 97.7 F 03/08/20 13:19 Pulse 98 03/08/20 13:19 Resp 17 03/08/20 13:19 BP 112/90 03/08/20 13:19 Pulse Ox 98 03/08/20 13:19 - Orders/Labs/Meds Labs: Laboratory Tests 03/08/20 03/08/20 Range/Units 14:42 14:42 WBC 15.50 H (4.0-11.0) K/uL RBC 4.58 (4.30-5.90) M/uL Hgb 12.8 (12.0-16.0) g/dL Hct 40.2 (36.0-46.0) % MCV 87.8 (80.0-98.0) fL MCH 27.9 (27.0-32.0) pg MCHC 31.8 (31.0-37.0) g/dL RDW Std Deviation 54.4 (28.0-62.0) fl RDW Coeff of [place] 17 H (11.0-15.0) % Plt Count 651 H (150-400) K/uL MPV 10.30 (7.40-12.00) fL Neut % (Auto) 86.9 H (48.0-80.0) % Lymph % (Auto) 8.6 L (16.0-40.0) % Whitman % (Auto) 4.1 (0.0-15.0) % Eos % (Auto) 0.3 (0.0-7.0) % Baso % (Auto) 0.1 (0.0-1.5) % Neut # (Auto) 13.5 H (1.4-5.7) K/uL Lymph # (Auto) 1.3 (0.6-2.4) K/uL Whitman # (Auto) 0.6 (0.0-0.8) K/uL Eos # (Auto) 0.0 (0.0-0.7) K/uL Baso # (Auto) 0.0 (0.0-0.1) K/uL Nucleated RBC % 0.0 /100WBC Nucleated RBCs # 0 K/uL Sodium 138 (136-145) mmol/L Potassium 2.6 L (3.5-5.1) mmol/L Chloride 99 (98-107) mmol/L Carbon Dioxide 30.3 (21.0-32.0) mmol/L BUN 16 (7.0-18.0) mg/dL Creatinine 0.9 (0.6-1.0) mg/dL Est Cr Clr Drug Dosing 81.61 mL/min Estimated GFR (MDRD) > 60.0 ml/min Glucose 137 H (74-106) mg/dL Calcium 8.0 L (8.5-10.1) mg/dL Total Bilirubin 0.4 (0.2-1.0) mg/dL AST 21 (15-37) IU/L ALT 31 (14-63) IU/L Alkaline Phosphatase 125 H (46-116) U/L Troponin I < 0.050 (0.000-0.056) ng/mL Total Protein 7.1 (6.4-8.2) g/dL Albumin 3.3 L (3.4-5.0) g/dL Globulin 3.8 (2.6-4.0) g/dL Albumin/Globulin Ratio 0.9 (0.9-1.6) Meds: Medications Discontinued Medications Generic Name Dose Route Start Last Admin Trade Name Freq PRN Reason Stop Dose Admin Hydrocodone Bitart/Acetaminophen 1 tab 03/08/20 13:38 03/08/20 13:43 [place] 325-5 Mg PO 03/08/20 13:39 1 tab ONETIME ONE Administration Departure - Departure Time of Disposition: 15:27 Disposition: Home, Self-Care 01 Condition: Good Clinical Impression: Blood in stool Gastritis Qualifiers: Gastritis type: unspecified gastritis Chronicity: acute Gastritis bleeding: presence of bleeding unspecified Qualified Code(s): K29.00 - Acute gastritis without bleeding Chest wall contusion Qualifiers: Encounter type: initial encounter Laterality: left Qualified Code(s): S20.212A - Contusion of left front wall of thorax, initial encounter - Discharge Information *PRESCRIPTION DRUG MONITORING PROGRAM REVIEWED*: Yes *COPY OF PRESCRIPTION DRUG MONITORING REPORT IN PATIENT DAVE: Yes Instructions: Gastrointestinal Bleeding, [id number], Contusion, [id number] , Gastritis, Adult, [id number] Referrals: Ninoska Zambrano ROOF TILER [Primary Care Provider] - Forms: ED Department Discharge Additional Instructions: Take all medications as directed. Follow up with your PCP in the next two to four days. Drink plenty of clear liquids for the next 24-48 hours. Rest for the next 24 hours. Return to the ED if your condition gets worse or should you have any questions or concerns. The following information is given to patients seen in the emergency department who are being discharged to home. This information is to outline your options for follow-up care. We provide all patients seen in our emergency department with a follow-up referral. The need for follow-up, as well as the timing and circumstances, are variable depending upon the specifics of your emergency department visit. If you don't have a primary care physician on staff, we will provide you with a referral. We always advise you to contact your personal physician following an emergency department visit to inform them of the circumstance of the visit and for follow-up with them and/or the need for any referrals to a consulting specialist. The emergency department will also refer you to a specialist when appropriate. This referral assures that you have the opportunity for follow-up care with a specialist. All of these measure are taken in an effort to provide you with optimal care, which includes your follow-up. Under all circumstances we always encourage you to contact your private physician who remains a resource for coordinating your care. When calling for follow-up care, please make the office aware that this follow-up is from your recent emergency room visit. If for any reason you are refused follow-up, please contact the [facility] Emergency Department at and asked to speak to the emergency department charge nurse Sepsis Event Note - Focused Exam Vital Signs: Vital Signs Temp Pulse Resp BP Pulse Ox 03/08/20 13:19 97.7 F 98 17 112/90 98 Date Exam was Performed: 03/08/20 Time Exam was Performed: 15:17
[2020-03-08] MEDS ORDERED: Acetaminophen/HYDROcodone 325-5 MG Tab PO ONE (13:38)
--- NOTE | 2020-03-08 14:14 | CR ---
Chest: 2 views of the chest were obtained. Comparison: No previous chest imaging is available. Heart is slightly enlarged. Upper mediastinum is normal. There is a linear density noted off the upper left cardiac apex either due to scarring or atelectasis. Minimal pulmonary vascular congestion may be present. Slight areas of parenchymal density are noted within the left upper chest, uncertain if these are artifact or due to areas of pleural thickening. Bony structures are within normal limits. Impression: 1. Slight cardiomegaly and questionable mild pulmonary vascular congestion. Please correlate if patient has any known cardiac disease. 2. Slight area of atelectasis or scarring off the upper left cardiac apex. 3. Slight parenchymal densities within the upper left chest either due to artifact or possible pleural thickening. Diagnostic code #3 This report was dictated in MDT
[2020-03-08 15:11] LABS: BLOOD UREA NITROGEN,BUN 16 mg/dL (7.0-18.0); CARBON DIOXIDE,CO2 30.3 mmol/L (21.0-32.0); CHLORIDE,CL 99 mmol/L (98-107); GLUCOSE RANDOM 137 mg/dL (74-106); POTASSIUM,K 2.6 mmol/L (3.5-5.1); SODIUM,NA 138 mmol/L (136-145)
== END 2020-03-08 15:35 | disposition home or self-care (01) ==
LOC: MW.ED 12:53
DX: S20.212A Contusion of left front wall of thorax, initial encounter (principal); K29.01 Acute gastritis with bleeding; I10 Essential (primary) hypertension; K21.9 Gastro-esophageal reflux disease without esophagitis; F41.9 Anxiety disorder, unspecified; Z79.899 Other long term (current) drug therapy; X58.XXXA Exposure to other specified factors, initial encounter
CPT/HCPCS: 36415; 71046; 80053; 84484; 85025; 99285; A9270; 99283

== ENCOUNTER 2020-03-15 21:19 | Emergency (ER) | payer BC ==
[2020-03-15] MEDS ORDERED: Ibuprofen 400 MG Tab PO ONE (21:49)
[2020-03-15] MEDS ORDERED: oxyCODONE 5 MG Tab PO ONE (21:49)
--- NOTE | 2020-03-15 21:53 | EDM.PDOC ---
ED HPI GENERAL MEDICAL PROBLEM - General Chief Complaint: Back Pain or Injury Stated Complaint: BACK PAIN Time Seen by Provider: 03/15/20 21:22 Source of Information: Reports: Patient History Limitations: Reports: No Limitations - History of Present Illness INITIAL COMMENTS - FREE TEXT/NARRATIVE: 39-year-old female with past medical history of recent cardiac arrest due to drug overdose, polysubstance abuse, SVT presenting with back pain. Patient reports a 1 to 2-week history of bilateral thoracic back pain over the scapula and the posterolateral chest wall. Pain is constant, worse with movement of her upper extremities, nonradiating, described as "aching". Reports that this back pain has been present since she was discharged from the hospital in [place], [place] following a cardiac arrest. She was seen in her primary care clinic on March 10, 2020 and was prescribed a short course of Percocet pain medication. She states that she is out of her prescribed Percocet. She has been taking [id number] acetaminophen and ibuprofen with partial relief of her pain. She presents to the emergency department this evening for evaluation of continuing back pain. She denies any new trauma, extremity numbness or weakness, bowel/bladder retention or incontinence, autoimmune disease, fever, history of immunosuppression, history of malignancy, extremity numbness or weakness, or gait change. Remote history of IV drug use, patient states this last occurred at least 20 years ago. She did just finish a dose of oral prednisone that was prescribed at hospital discharge for pneumonia. back Pain Score (Numeric/FACES): 10 - Related Data Allergies Allergy/AdvReac Type Severity Reaction Status Date / Time No Known Allergies Allergy Verified 03/15/20 21:41 Home Meds: Home Meds Omeprazole 20 mg PO DAILY 08/29/19 [History] hydroCHLOROthiazide [Hydrochlorothiazide] 12.5 mg PO DAILY 01/31/20 [History] Hydrocodone/Acetaminophen [Mora 5-325 Tablet] 1 each PO Q8H PRN 4 Days #12 tablet 03/08/20 [Rx] Pantoprazole Sodium [Protonix] 40 mg PO DAILY 60 Days #60 tablet. 03/08/20 [Rx ] Past Medical History HEENT History: Reports: None Cardiovascular History: Reports: Arrhythmia, Hypertension Other Cardiovascular History: cardiac arrest due to drug overdose on 02/27/2020, SVT Respiratory History: Reports: None Gastrointestinal History: Reports: GERD Genitourinary History: Reports: None WATCH GUARD GATE History: Reports: Musculoskeletal History: Reports: None Neurological History: Reports: None Psychiatric History: Reports: Anxiety, Other (See Below) Other Psychiatric History: overdosed on 02/27/20 but pt denies wanting to harm self at the time Endocrine/Metabolic History: Reports: None Hematologic History: Reports: None Immunologic History: Reports: None Oncologic (Cancer) History: Reports: None Dermatologic History: Reports: None - Infectious Disease History Infectious Disease History: Reports: Chicken Pox - Past Surgical History Head Surgeries/Procedures: Reports: None HEENT Surgical History: Reports: Tonsillectomy Cardiovascular Surgical History: Reports: None GI Surgical History: Reports: None Female Surgical History: Reports: Section, Tubal Ligation Musculoskeletal Surgical History: Reports: Other (See Below) Other Musculoskeletal Surgeries/Procedures:: L ankle fusion Social & Family History - Family History Family Medical History: Noncontributory - Tobacco Use Smoking Status *Q: Current Every Day Smoker Years of Tobacco use: 30 Packs/Tins Daily: 0.5 - Caffeine Use Caffeine Use: Reports: Coffee - Alcohol Use Alcohol Use History: Yes Days Per Week of Alcohol Use: 7 Number of Drinks Per Day: 7 Total Drinks Per Week: 49 - Recreational Drug Use Recreational Drug Use: Yes Recreational Drug Type: Reports: Marijuana/Hashish, Methamphetamine Recreational Drug Use Frequency: Socially Recreational Drug Last Use: "yesterday" ED ROS GENERAL - Review of Systems Review Of Systems: See Below Constitutional: Denies: Fever, Chills HEENT: Reports: No Symptoms Respiratory: Denies: Shortness of Breath Cardiovascular: Denies: Chest Pain Endocrine: Reports: No Symptoms GI/Abdominal: Denies: Abdominal Pain, Nausea, Stool Incontinence, Vomiting : Denies: Flank Pain, Urinary Retention Musculoskeletal: Reports: Back Pain. Denies: Neck Pain, Arm Pain Skin: Reports: No Symptoms Neurological: Denies: Numbness, Paresthesia, Tingling, Difficulty Walking, Weakness, Gait Disturbance Psychiatric: Reports: No Symptoms Hematologic/Lymphatic: Reports: No Symptoms Immunologic: Reports: No Symptoms ED EXAM, UPPER BACK/NECK PAIN - Physical Exam Exam: See Below Text/Narrative:: Vital signs reviewed. Nursing notes reviewed. Constitutional: Awake, alert, non-distressed. Head: Normocephalic, atraumatic. Eyes: EOMI, conjunctiva normal, no discharge, no scleral icterus. Ears, Nose, Throat: External ears and ears normal, moist oral mucosa. Cardiovascular: 2+ radial pulses bilaterally, capillary refill less than 2 seconds. Pulmonary: normal work of breathing, no accessory muscle use. Abdomen/GI: Soft, nontender, nondistended, no guarding or rigidity, no masses. Musculoskeletal: No deformities. Mild tenderness to palpation to the musculature over the bilateral scapulae and the bilateral posterolateral chest wall. No tenderness to palpation over the spine. Integumentary: Appropriate color for ethnicity, warm, dry, no pallor or jaundice , no rash. Neurologic: Alert, answering questions appropriately, normal speech, no facial droop, moving all extremities well. 5/5 strength and sensation intact to light touch to all 4 extremities. Able to sit, stand, and ambulate without assistance. Able to walk on heels and tiptoes. Normal gait. Able to crouch down and stand up without difficulty. Psychiatric: Appropriate mood and affect, normal thought process. Back Exam: No: Vertebral Tenderness Neurologic: No Motor/Sensory Deficits. No: Abnormal Gait, Motor Weakness, Sensory Deficit Course - Vital Signs Text/Narrative:: 39-year-old female presenting with back pain. Patient hemodynamically stable, afebrile, well-appearing, looks nontoxic. Differential diagnosis includes but is not limited to: Musculoskeletal back pain , spinal epidural abscess, thoracic aortic dissection, muscle spasm/strain, occult trauma, soft tissue injury, zoster, etc. Physical examination revealed mild tenderness to palpation of the musculature of the back. No tenderness over the spine. Equal radial pulses bilaterally. No fever or infectious symptoms. No symptoms to suggest a compressive spinal cord etiology. Remote history of IV drug use makes epidural abscess unlikely. Patient appears nontoxic. She denies any chest pain or chest pain rating to the back, which argues against dissection. No shortness of breath or respiratory symptoms to suggest pneumonia. No history of new trauma since hospital discharge. No rash on examination. Suspect uncomplicated musculoskeletal back pain. Significant concern for opioid/drug dependence given recent cardiopulmonary arrest, thought to be due to drug overdose. Reviewed [facility] PDMP, overdose risk for 480. Patient has been prescribed Percocet by at least 3 different clinicians in the past 10 days. I explained the patient that I would be happy to offer a single dose of oral pain medication here in the ER, but we would not be able to prescribe any controlled medications at discharge. She is comfortable with this plan. I recommended [id number] acetaminophen ibuprofen as directed on the package along with heating pad and lidocaine patches. I did offer a referral to physical therapy, which she is interested in. She will be following up with her primary medical clinic in the next few days for reevaluation. Patient is stable to discharge home with outpatient primary care follow-up. Strict emergency department return precautions were provided, patient indicated understanding. All questions were answered prior to departure. Discharged in good condition. Last Recorded V/S: Last Vital Signs Temp 35.7 C L 03/15/20 21:21 Pulse 88 03/15/20 21:21 Resp 18 03/15/20 21:21 BP 139/96 H 03/15/20 21:21 Pulse Ox 97 03/15/20 21:21 - Orders/Labs/Meds Meds: Medications Discontinued Medications Generic Name Dose Route Start Last Admin Trade Name Wendy PRN Reason Stop Dose Admin Ibuprofen 400 mg 03/15/20 21:49 Motrin PO 03/15/20 21:50 ONETIME ONE Oxycodone HCl 10 mg 03/15/20 21:49 Oxycodone PO 03/15/20 21:50 ONETIME ONE Departure - Departure Time of Disposition: 21:54 Disposition: Home, Self-Care 01 Condition: Good Clinical Impression: Upper back pain - Discharge Information *PRESCRIPTION DRUG MONITORING PROGRAM REVIEWED*: Yes *COPY OF PRESCRIPTION DRUG MONITORING REPORT IN PATIENT DAVE: Not Applicable Instructions: Acute Back Pain, Adult Referrals: Ninoska Zambrano NP [Primary Care Provider] - 3 Days (For follow-up of symptoms) Forms: ED Department Discharge Care Plan Goals: I recommend [id number] acetaminophen and ibuprofen as directed on package for pain. I also recommend a heating pad and hzho-jww-khopkhz lidocaine patches. Please follow-up with your primary medical doctor the next 2 to 3 days for reevaluation of your complaints. I also recommend that you receive a physical therapy evaluation as this can help with your complaints of pain. The following information is given to patients seen in the emergency department who are being discharged to home. This information is to outline your options for follow-up care. We provide all patients seen in our emergency department with a follow-up referral. The need for follow-up, as well as the timing and circumstances, are variable depending upon the specifics of your emergency department visit. If you don't have a primary care physician on staff, we will provide you with a referral. We always advise you to contact your personal physician following an emergency department visit to inform them of the circumstance of the visit and for follow-up with them and/or the need for any referrals to a consulting specialist. The emergency department will also refer you to a specialist when appropriate. This referral assures that you have the opportunity for follow-up care with a specialist. All of these measure are taken in an effort to provide you with optimal care, which includes your follow-up. Under all circumstances we always encourage you to contact your private physician who remains a resource for coordinating your care. When calling for follow-up care, please make the office aware that this follow-up is from your recent emergency room visit. If for any reason you are refused follow-up, please contact the [facility] Emergency Department at and asked to speak to the emergency department charge nurse. If you do not have a primary care physician that is caring for you, you can contact these clinics below to set up an appointment to establish care: [facility] - Primary Care [address] [place] [id number] [address] Rehabilitation Services at [facility] (Physical Therapy, Occupational Therapy, Speech Therapy) Professional Building [address] [place] [address], [address] [place] [address] Sepsis Event Note - Evaluation Sepsis Screening Result: No Definite Risk - Focused Exam Vital Signs: Vital Signs Temp Pulse Resp BP Pulse Ox 03/15/20 21:21 35.7 C L 88 18 139/96 H 97 Date Exam was Performed: 03/15/20 Time Exam was Performed: 21:59
== END 2020-03-15 22:10 | disposition home or self-care (01) ==
LOC: MW.ED 21:19
DX: M54.6 Pain in thoracic spine (principal); I10 Essential (primary) hypertension; K21.9 Gastro-esophageal reflux disease without esophagitis; F17.210 Nicotine dependence, cigarettes, uncomplicated; Z79.899 Other long term (current) drug therapy
CPT/HCPCS: 99283; A9270; 99282

== ENCOUNTER 2020-03-18 02:20 | Emergency (ER) | payer BC ==
[2020-03-18] MEDS ORDERED: predniSONE 20 MG Tab PO ONE (02:45)
[2020-03-18] MEDS ORDERED: Lidocaine 5% 700 MG Patch TOP ONE (02:45)
[2020-03-18] MEDS ORDERED: Cyclobenzaprine 10 MG Tab PO ONE (02:46)
--- NOTE | 2020-03-18 02:52 | EDM.PDOC ---
ED HPI GENERAL MEDICAL PROBLEM - General Chief Complaint: Back Pain or Injury Stated Complaint: PAIN Time Seen by Provider: 03/18/20 02:27 Source of Information: Reports: Patient History Limitations: Reports: No Limitations - History of Present Illness INITIAL COMMENTS - FREE TEXT/NARRATIVE: Patient is a 39-year-old female who is complaining of upper back pain and also sternal pain is been ongoing for the last 20 days. Patient had a recent cardiac arrest thought to be from drug overdose and was treated at [facility] for that and was told that she was getting of continuing pain from having chest compressions done at that time. She states when she moves at times her sternum seems to not be connected. Patient's back pain is in the rhomboid area and is worse with certain movements the patient is moving both shoulders dramatically when she is moving her upper extremities explaining her pain symptoms. Patient has a 20-year history of IV drug abuse and denies more recent IV drug use. Denies weakness or paresthesias. Patient was seen here 3 days ago and at that time the provider did want to MECHANICAL INSPECTOR and found that she had gone to 3 other providers to receive narcotic pain medicines over the prior 3 weeks. Patient was given 1 dose of Percocet here and that is what she is currently seeking for me summer. SHe was not able to get a hold of her provider secondary to this being a holiday weekend. Patient denies any exertional chest pain or any shortness of breath. She denies any cough or any fever or chills. Patient states she did have x-rays done to rule out any rib fracture both at [facility] and since then. Patient was given a prescription for Lidoderm patch and told she could get [id number]-[id number] patches if she could not afford the prescription. She has not tried Lidoderm. Patient states that when she was discharged from [facility] they did give her prescription for prednisone which did help her at that time. Upper Back Pain Score (Numeric/FACES): 10 - Related Data Allergies Allergy/AdvReac Type Severity Reaction Status Date / Time No Known Allergies Allergy Verified 03/18/20 02:29 Home Meds: Home Meds Omeprazole 20 mg PO DAILY 08/29/19 [History] hydroCHLOROthiazide [Hydrochlorothiazide] 12.5 mg PO DAILY 01/31/20 [History] Hydrocodone/Acetaminophen [P[place] Burn 5-325 Tablet] 1 each PO Q8H PRN 4 Days #12 tablet 03/08/20 [Rx] Pantoprazole Sodium [Protonix] 40 mg PO DAILY 60 Days #60 tablet. 03/08/20 [Rx ] Past Medical History HEENT History: Reports: None Cardiovascular History: Reports: Arrhythmia, Hypertension Other Cardiovascular History: cardiac arrest due to drug overdose on 02/27/2020, SVT Respiratory History: Reports: None Gastrointestinal History: Reports: GERD Genitourinary History: Reports: None LINE MOVER History: Reports: Musculoskeletal History: Reports: None Neurological History: Reports: None Psychiatric History: Reports: Anxiety, Other (See Below) Other Psychiatric History: overdosed on 02/27/20 but pt denies wanting to harm self at the time Endocrine/Metabolic History: Reports: None Hematologic History: Reports: None Immunologic History: Reports: None Oncologic (Cancer) History: Reports: None Dermatologic History: Reports: None - Infectious Disease History Infectious Disease History: Reports: Chicken Pox - Past Surgical History Head Surgeries/Procedures: Reports: None HEENT Surgical History: Reports: Tonsillectomy Cardiovascular Surgical History: Reports: None GI Surgical History: Reports: None Female Surgical History: Reports: Section, Tubal Ligation Musculoskeletal Surgical History: Reports: Other (See Below) Other Musculoskeletal Surgeries/Procedures:: L ankle fusion Social & Family History - Family History Family Medical History: Noncontributory - Tobacco Use Smoking Status *Q: Current Every Day Smoker Years of Tobacco use: 30 Packs/Tins Daily: 1 - Caffeine Use Caffeine Use: Reports: Coffee - Alcohol Use Days Per Week of Alcohol Use: 7 Number of Drinks Per Day: 7 Total Drinks Per Week: 49 - Recreational Drug Use Recreational Drug Use: Yes Recreational Drug Type: Reports: Marijuana/Hashish, Methamphetamine Recreational Drug Use Frequency: Weekly ED ROS GENERAL - Review of Systems Review Of Systems: Comprehensive ROS is negative, except as noted in HPI. ED EXAM, UPPER BACK/NECK PAIN - Physical Exam Exam: See Below Exam Limited By: No Limitations General Appearance: Alert, Anxious Head Exam: Normocephalic Neck Exam: Non-Tender, Full Range of Motion Cardiovascular/Respiratory: Regular Rate, Rhythm, No JVD, Normal Breath Sounds, No Respiratory Distress, Other (Patient does have some tenderness on her sternum. She has negative rib spring.) GI/Abdominal: Normal Bowel Sounds, Soft Back Exam: Normal Inspection, Muscle Spasm. No: CVA Tenderness (L), CVA Tenderness (R), Decreased Range of Motion, Paraspinal Tenderness, Vertebral Tenderness Neurologic: No Motor/Sensory Deficits, Alert Psychiatric: Anxious, Other (Animated affect.) Skin Exam: Normal Color, Warm/Dry Course - Vital Signs Text/Narrative:: I have informed patient I will not be giving her narcotic pain medicine for her muscle skeletal pain. We are trying Lidoderm patch with prednisone and Flexeril. We will give her a prescription for all 3 of these. She may follow- up with her PCP tomorrow though I have informed her that for her chronic musculoskeletal pain narcotics are thought to be harmful. Nursing staff is informed me the patient is left AWOL. Last Recorded V/S: Last Vital Signs Temp 35.7 C L 03/18/20 02:26 Pulse 96 03/18/20 02:26 Resp 20 03/18/20 02:26 BP 139/73 03/18/20 02:26 Pulse Ox 97 03/18/20 02:26 - Orders/Labs/Meds Orders: Active Orders 24 hr Category Date Time Status Cyclobenzaprine [Flexeril] Med 03/18/20 02:46 Once 10 mg PO ONETIME ONE Lidocaine 5% [Lidoderm 5%] Med 03/18/20 02:45 Once 700 mg TOP ONETIME ONE predniSONE Med 03/18/20 02:45 Once 40 mg PO ONETIME ONE Medication Orders Cyclobenzaprine HCl (Flexeril) 10 mg PO ONETIME ONE Stop: 03/18/20 02:47 Lidocaine (Lidoderm 5%) 700 mg TOP ONETIME ONE Stop: 03/18/20 02:46 Prednisone (Prednisone) 40 mg PO ONETIME ONE Stop: 03/18/20 02:46 Meds: Medications Generic Name Dose Route Start Last Admin Trade Name Freq PRN Reason Stop Dose Admin Cyclobenzaprine HCl 10 mg 03/18/20 02:46 Flexeril PO 03/18/20 02:47 ONETIME ONE Lidocaine 700 mg 03/18/20 02:45 Lidoderm 5% TOP 03/18/20 02:46 ONETIME ONE Prednisone 40 mg 03/18/20 02:45 Prednisone PO 03/18/20 02:46 ONETIME ONE Departure - Departure Time of Disposition: 02:55 Disposition: Eloped 07 Condition: Good Clinical Impression: Muscle spasm of back - Discharge Information Referrals: PCP,Cindy [Primary Care Provider] - Additional Instructions: The following information is given to patients seen in the emergency department who are being discharged to home. This information is to outline your options for follow-up care. We provide all patients seen in our emergency department with a follow-up referral. The need for follow-up, as well as the timing and circumstances, are variable depending upon the specifics of your emergency department visit. If you don't have a primary care physician on staff, we will provide you with a referral. We always advise you to contact your personal physician following an emergency department visit to inform them of the circumstance of the visit and for follow-up with them and/or the need for any referrals to a consulting specialist. The emergency department will also refer you to a specialist when appropriate. This referral assures that you have the opportunity for follow-up care with a specialist. All of these measure are taken in an effort to provide you with optimal care, which includes your follow-up. Under all circumstances we always encourage you to contact your private physician who remains a resource for coordinating your care. When calling for follow-up care, please make the office aware that this follow-up is from your recent emergency room visit. If for any reason you are refused follow-up, please contact the [facility] Emergency Department at and asked to speak to the emergency department charge nurse. Care Plan Goals: Heat and massage as tolerated. Ibuprofen with meals. Follow-up with PCP for PT referral. Sepsis Event Note - Evaluation Sepsis Screening Result: No Definite Risk - Focused Exam Vital Signs: Vital Signs Temp Pulse Resp BP Pulse Ox 03/18/20 02:26 35.7 C L 96 20 139/73 97 Date Exam was Performed: 03/18/20 Time Exam was Performed: 02:47 - My Orders Last 24 Hours: My Active Orders 03/18/20 02:45 Lidocaine 5% [Lidoderm 5%] 700 mg TOP ONETIME ONE predniSONE 40 mg PO ONETIME ONE 03/18/20 02:46 Cyclobenzaprine [Flexeril] 10 mg PO ONETIME ONE - Assessment/Plan Last 24 Hours: My Active Orders 03/18/20 02:45 Lidocaine 5% [Lidoderm 5%] 700 mg TOP ONETIME ONE predniSONE 40 mg PO ONETIME ONE 03/18/20 02:46 Cyclobenzaprine [Flexeril] 10 mg PO ONETIME ONE
== END 2020-03-18 02:59 | disposition left against medical advice (07) ==
LOC: MW.ED 02:20
DX: M62.830 Muscle spasm of back (principal); I10 Essential (primary) hypertension; K21.9 Gastro-esophageal reflux disease without esophagitis; F17.210 Nicotine dependence, cigarettes, uncomplicated; Z79.899 Other long term (current) drug therapy
CPT/HCPCS: 99283; A9270; 99282

== ENCOUNTER 2020-04-14 15:50 | Emergency (ER) | payer BC ==
--- NOTE | 2020-04-14 16:43 | EDM.PDOC ---
ED HPI GENERAL MEDICAL PROBLEM - General Chief Complaint: General Stated Complaint: SICK Time Seen by Provider: 04/14/20 16:00 Source of Information: Reports: Patient History Limitations: Reports: No Limitations - History of Present Illness INITIAL COMMENTS - FREE TEXT/NARRATIVE: 39-year-old female past medical history of drug abuse, recent cardiopulmonary arrest, congestive heart failure on furosemide, SVT, hypertension, hypokalemia presenting with multiple complaints. She reports 3 days of generalized muscle cramps along with swelling to her face and her lower extremities. She is concerned that her electrolytes may be deranged. She also reports 3 days of constant chest tightness, but denies any shortness of breath/dyspnea. Denies any recent fever, vomiting, GI bleeding, or diarrhea. No recent dietary changes. No other complaints. cramping/generalized Pain Score (Numeric/FACES): 5 - Related Data Allergies Allergy/AdvReac Type Severity Reaction Status Date / Time No Known Allergies Allergy Verified 04/14/20 16:01 Home Meds: Home Meds Omeprazole 20 mg PO DAILY 08/29/19 [History] Pantoprazole Sodium [Protonix] 40 mg PO DAILY 60 Days #60 tablet. 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: Musculoskeletal History: Reports: None Neurological History: Reports: None Psychiatric History: Reports: Anxiety, Other (See Below) Other Psychiatric History: overdosed on 02/27/20 but pt denies wanting to harm self at the time Endocrine/Metabolic History: Reports: None Hematologic History: Reports: None Immunologic History: Reports: None Oncologic (Cancer) History: Reports: None Dermatologic History: Reports: None - Infectious Disease History Infectious Disease History: Reports: Chicken Pox - Past Surgical History Head Surgeries/Procedures: Reports: None HEENT Surgical History: Reports: Adenoidectomy, Tonsillectomy Cardiovascular Surgical History: Reports: None GI Surgical History: Reports: None Female Surgical History: Reports: Section, Tubal Ligation Musculoskeletal Surgical History: Reports: Other (See Below) Other Musculoskeletal Surgeries/Procedures:: L ankle fusion Social & Family History - Family History Family Medical History: Noncontributory - Tobacco Use Smoking Status *Q: Current Every Day Smoker Years of Tobacco use: 25 Packs/Tins Daily: 1 - Caffeine Use Caffeine Use: Reports: Tea - Recreational Drug Use Recreational Drug Use: Yes Recreational Drug Type: Reports: Methamphetamine Recreational Drug Use Frequency: Monthly ED ROS GENERAL - Review of Systems Review Of Systems: See Below Constitutional: Denies: Fever, Chills HEENT: Reports: No Symptoms Respiratory: Denies: Shortness of Breath Cardiovascular: Reports: Chest Pain, Edema. Denies: Dyspnea on Exertion, Lightheadedness, Orthopnea, Syncope Endocrine: Denies: Fatigue GI/Abdominal: Denies: Abdominal Pain, Bloody Stool, Diarrhea, Nausea, Vomiting : Denies: Dysuria, Flank Pain Musculoskeletal: Denies: Neck Pain, Back Pain Skin: Denies: Rash Neurological: Denies: Headache Psychiatric: Reports: No Symptoms Hematologic/Lymphatic: Reports: No Symptoms ED EXAM, GENERAL - Physical Exam Exam: See Below Free Text/Narrative:: Vital signs reviewed. Nursing notes reviewed. Constitutional: Awake, alert, non-distressed. Head: Normocephalic, atraumatic. Eyes: EOMI, conjunctiva normal, no discharge, no scleral icterus. Ears, Nose, Throat: External ears and nose normal, moist oral mucosa. Cardiovascular: 2+ radial pulse, capillary refill less than 2 seconds. Trace edema to the bilateral lower extremities Pulmonary: normal work of breathing, no accessory muscle use. CTA BL Abdomen/GI: Soft, nontender, nondistended, no guarding or rigidity, no masses. Musculoskeletal: No deformities. Integumentary: Appropriate color for ethnicity, warm, dry, no pallor or jaundice, no rash. Neurologic: Alert, answering questions appropriately, normal speech, no facial droop, moving all extremities well. Psychiatric: Appropriate mood and affect, normal thought process. EKG INTERPRETATION EKG Interpretation Comments: 12-Lead ECG Interpretation Acquired: 4:53 PM Rhythm: Sinus rhythm Rate: 66 bpm [place]: Normal Intervals: Normal Ectopy: None Ischemic Changes: None apparent RV Strain: No obvious RV strain pattern. ST Segments/T-Waves: No notable changes Interpretation: Unremarkable Course - Vital Signs Text/Narrative:: 39-year-old female with complaints of muscle cramps, chest tightness, swelling. Patient hemodynamically stable, afebrile, well-appearing, looks nontoxic. Hemodynamically stable, well-appearing. Very minimal trace lower extremity edema. Labs show mild hypokalemia 3.3, mild hypocalcemia, hypomagnesemia. Negative troponin. LFTs reassuring. UA shows no protein. Normal albumin. Given IV magnesium sulfate and a dose of p.o. potassium chloride. Low suspicion for acute coronary syndrome given subjective complaints of 3 days of constant chest pain with nonischemic EKG and negative troponin. Low suspicion for pulmonary embolism, no shortness of breath, patient not tac hycardic or hypoxic, no asymmetric limb swelling, no history of venous thromboembolism. Pain does not radiate to the back, patient is not significantly hypertensive so dissection is not of high concern. No report of fever, cough, or shortness of breath to suggest pneumonia. No recent vomiting. No evidence of gross volume overload. Stable discharge home with outpatient primary care follow-up. Instructed patient to continue her furosemide dosing and to have her electrolytes rechecked by her personal physicians. Plan: Patient is stable to discharge home with outpatient primary care follow- up. Strict emergency department return precautions were provided, patient indicated understanding. All questions were answered prior to departure. Discharged in good condition. Last Recorded V/S: Last Vital Signs Temp 36.2 C 04/14/20 16:12 Pulse 73 04/14/20 16:12 Resp 20 04/14/20 16:12 BP 135/52 L 04/14/20 16:12 Pulse Ox 96 04/14/20 16:12 - Orders/Labs/Meds Orders: Active Orders 24 hr Category Date Time Status EKG 12 Lead [EKG Documentation Completion] [RC] STAT Care 04/14/20 16:39 Active Labs: Laboratory Tests 04/14/20 04/14/20 04/14/20 Range/Units 16:45 16:45 16:45 WBC 7.38 (4.0-11.0) K/uL RBC 3.99 L (4.30-5.90) M/uL Hgb 11.8 L (12.0-16.0) g/dL Hct 37.0 (36.0-46.0) % MCV 92.7 (80.0-98.0) fL MCH 29.6 (27.0-32.0) pg MCHC 31.9 (31.0-37.0) g/dL RDW Std Deviation 60.7 (28.0-62.0) fl RDW Coeff of [place] 19 H (11.0-15.0) % Plt Count 391 (150-400) K/uL MPV 9.50 (7.40-12.00) fL Neut % (Auto) 62.0 (48.0-80.0) % Lymph % (Auto) 26.2 (16.0-40.0) % Ward % (Auto) 7.0 (0.0-15.0) % Eos % (Auto) 4.3 (0.0-7.0) % Baso % (Auto) 0.5 (0.0-1.5) % Neut # (Auto) 4.6 (1.4-5.7) K/uL Lymph # (Auto) 1.9 (0.6-2.4) K/uL Ward # (Auto) 0.5 (0.0-0.8) K/uL Eos # (Auto) 0.3 (0.0-0.7) K/uL Baso # (Auto) 0.0 (0.0-0.1) K/uL Nucleated RBC % 0.0 /100WBC Nucleated RBCs # 0 K/uL Sodium 139 (136-145) mmol/L Potassium 3.3 L (3.5-5.1) mmol/L Chloride 104 (98-107) mmol/L Carbon Dioxide 23.9 (21.0-32.0) mmol/L BUN 10 (7.0-18.0) mg/dL Creatinine 0.7 (0.6-1.0) mg/dL Est Cr Clr Drug Dosing 104.93 mL/min Estimated GFR (MDRD) > 60.0 ml/min Glucose 156 H (74-106) mg/dL Calcium 8.1 L (8.5-10.1) mg/dL Magnesium 1.5 L (1.8-2.4) mg/dL Total Bilirubin 0.3 (0.2-1.0) mg/dL AST 73 H (15-37) IU/L ALT 44 (14-63) IU/L Alkaline Phosphatase 147 H (46-116) U/L Troponin I < 0.050 (0.000-0.056) ng/mL Total Protein 6.5 (6.4-8.2) g/dL Albumin 3.4 (3.4-5.0) g/dL Globulin 3.1 (2.6-4.0) g/dL Albumin/Globulin Ratio 1.1 (0.9-1.6) HCG, Qual (NEG) Urine Color Urine Appearance Urine pH (5.0-8.0) Ur Specific [place] (1.001-1.035) Urine Protein (NEGATIVE) mg/dL Urine Glucose (UA) (NEGATIVE) mg/dL Urine Ketones (NEGATIVE) mg/dL Urine Occult Blood (NEGATIVE) Urine Nitrite (NEGATIVE) Urine Bilirubin (NEGATIVE) Urine Urobilinogen (<2.0) EU/dL Ur Leukocyte Esterase (NEGATIVE) Urine RBC (0-2/HPF) Urine WBC (0-5/HPF) Ur Epithelial Cells (NONE-FEW) Amorphous Sediment (NEGATIVE) Urine Bacteria (NEGATIVE) Urine Mucus (NONE-MOD) 04/14/20 04/14/20 Range/Units 16:45 16:47 WBC (4.0-11.0) K/uL RBC (4.30-5.90) M/uL Hgb (12.0-16.0) g/dL Hct (36.0-46.0) % MCV (80.0-98.0) fL MCH (27.0-32.0) pg MCHC (31.0-37.0) g/dL RDW Std Deviation (28.0-62.0) fl RDW Coeff of [place] (11.0-15.0) % Plt Count (150-400) K/uL MPV (7.40-12.00) fL Neut % (Auto) (48.0-80.0) % Lymph % (Auto) (16.0-40.0) % Ward % (Auto) (0.0-15.0) % Eos % (Auto) (0.0-7.0) % Baso % (Auto) (0.0-1.5) % Neut # (Auto) (1.4-5.7) K/uL Lymph # (Auto) (0.6-2.4) K/uL [place] # (Auto) (0.0-0.8) K/uL Eos # (Auto) (0.0-0.7) K/uL Baso # (Auto) (0.0-0.1) K/uL Nucleated RBC % /100WBC Nucleated RBCs # K/uL Sodium (136-145) mmol/L Potassium (3.5-5.1) mmol/L Chloride (98-107) mmol/L Carbon Dioxide (21.0-32.0) mmol/L BUN (7.0-18.0) mg/dL Creatinine (0.6-1.0) mg/dL Est Cr Clr Drug Dosing mL/min Estimated GFR (MDRD) ml/min Glucose (74-106) mg/dL Calcium (8.5-10.1) mg/dL Magnesium (1.8-2.4) mg/dL Total Bilirubin (0.2-1.0) mg/dL AST (15-37) IU/L ALT (14-63) IU/L Alkaline Phosphatase (46-116) U/L Troponin I (0.000-0.056) ng/mL Total Protein (6.4-8.2) g/dL Albumin (3.4-5.0) g/dL Globulin (2.6-4.0) g/dL Albumin/Globulin Ratio (0.9-1.6) HCG, Qual NEGATIVE (NEG) Urine Color YELLOW Urine Appearance CLEAR Urine pH 6.5 (5.0-8.0) Ur Specific [place] 1.020 (1.001-1.035) Urine Protein NEGATIVE (NEGATIVE) mg/dL Urine Glucose (UA) NEGATIVE (NEGATIVE) mg/dL Urine Ketones NEGATIVE (NEGATIVE) mg/dL Urine Occult Blood NEGATIVE (NEGATIVE) Urine Nitrite NEGATIVE (NEGATIVE) Urine Bilirubin NEGATIVE (NEGATIVE) Urine Urobilinogen 0.2 (<2.0) EU/dL Ur Leukocyte Esterase TRACE H (NEGATIVE) Urine RBC 0-1 (0-2/HPF) Urine WBC 1-3 (0-5/HPF) Ur Epithelial Cells FEW (NONE-FEW) Amorphous Sediment RARE (NEGATIVE) Urine Bacteria FEW (NEGATIVE) Urine Mucus RARE (NONE-MOD) Meds: Medications Discontinued Medications Generic Name Dose Route Start Last Admin Trade Name Wendy PRN Reason Stop Dose Admin Magnesium Sulfate 2 gm/ Premix 50 mls @ 50 mls/hr 04/14/20 17:22 04/14/20 17:56 IV 04/14/20 18:21 50 mls/hr ONETIME ONE Administration Potassium Chloride 60 meq 04/14/20 17:24 04/14/20 17:52 Potassium Chloride PO 04/14/20 17:25 60 meq ONETIME ONE Administration Departure - Departure Time of Disposition: 17:42 Disposition: Home, Self-Care 01 Condition: Good Clinical Impression: Muscle cramps, Atypical chest pain, Hypokalemia, Hypomagnesemia - Discharge Information *PRESCRIPTION DRUG MONITORING PROGRAM REVIEWED*: Not Applicable *COPY OF PRESCRIPTION DRUG MONITORING REPORT IN PATIENT DAVE: Not Applicable Instructions: Muscle Cramps and Spasms, [id number], Hypomagnesemia, Hypokalemia, Nonspecific Chest Pain, Adult, [id number] Referrals: Ninoska Zambrano SEAT COVER CUTTER [Primary Care Provider] - 1 Week (For re-evaluation and to have your electrolytes re-checked.) Forms: ED Department Discharge Additional Instructions: Thank you for choosing the [facility] emergency department in [place] for your medical needs today. It was a pleasure caring for you. You were seen in the emergency department for muscle cramps, swelling, and chest pain. Your EKG looks reassuring. Your urine testing was normal. Your blood work showed that your magnesium and potassium levels were slightly low. You were given potassium and magnesium here in the ER. I would like for you to follow-up with your primary medical clinic in the next week or so to have your electrolytes rechecked and to be sure that your symptoms are improving. Please return the emergency department immediately if your symptoms worsen or if you feel worse. The following information is given to patients seen in the emergency department who are being discharged. This information is to outline your options for follow-up care. We provide all patients seen in our emergency department with a follow-up referral. The need for follow-up, as well as the timing and circumstances, are variable depending upon the specifics of your emergency department visit. If you don't have a primary care physician on staff, we will provide you with a referral. We always advise you to contact your personal physician following an emergency department visit to inform them of the circumstance of the visit and for follow-up with them and/or the need for any referrals to a consulting specialist. The emergency department will also refer you to a specialist when appropriate. This referral assures that you have the opportunity for follow-up care with a specialist. All of these measure are taken in an effort to provide you with optimal care, which includes your follow-up. Under all circumstances we always encourage you to contact your private physician who remains a resource for coordinating your care. When calling for follow-up care, please make the office aware that this follow-up is from your recent emergency room visit. If for any reason you are refused follow-up, please contact the [facility] Emergency Department at and asked to speak to the emergency department charge nurse. If you do not have a primary care physician that is caring for you, you can contact these clinics below to set up an appointment to establish care: [facility] - Primary Care [address] [place] [id number] [address] Sepsis Event Note (ED) - Evaluation Sepsis Screening Result: No Definite Risk - Focused Exam Vital Signs: Vital Signs Temp Pulse Resp BP Pulse Ox 04/14/20 16:12 36.2 C 73 20 135/52 L 96 - My Orders Last 24 Hours: My Active Orders 04/14/20 16:39 EKG 12 Lead [EKG Documentation Completion] [RC] STAT - Assessment/Plan Last 24 Hours: My Active Orders 04/14/20 16:39 EKG 12 Lead [EKG Documentation Completion] [RC] STAT
[2020-04-14 17:16] LABS: BLOOD UREA NITROGEN,BUN 10 mg/dL (7.0-18.0); CARBON DIOXIDE,CO2 23.9 mmol/L (21.0-32.0); CHLORIDE,CL 104 mmol/L (98-107); GLUCOSE RANDOM 156 mg/dL (74-106); POTASSIUM,K 3.3 mmol/L (3.5-5.1); SODIUM,NA 139 mmol/L (136-145)
[2020-04-14] MEDS ORDERED: Magnesium Sulfate/Water 2 GM in Premix Bag 1 BAG IV ONE (17:22)
[2020-04-14] MEDS ORDERED: Potassium Chloride 10% 20 MEQ/15 ML Soln 30 ML UD Cup PO ONE (17:24)
== END 2020-04-14 18:35 | disposition home or self-care (01) ==
LOC: MW.ED 15:50
DX: E87.6 Hypokalemia (principal); E83.42 Hypomagnesemia; R07.89 Other chest pain; I11.0 Hypertensive heart disease with heart failure; I50.9 Heart failure, unspecified; K21.9 Gastro-esophageal reflux disease without esophagitis; F17.210 Nicotine dependence, cigarettes, uncomplicated
CPT/HCPCS: 36415; 80053; 81001; 83735; 84484; 84703; 85025; 93005; 96365; 99285; A9270; J3475; 99283